=== PATIENT | male | born 1950 | race Caucasian/White ===

== ENCOUNTER 2017-10-29 12:54 | Emergency (ER) | payer OTHER ==
[2017-10-29 14:47] LABS: BASOPHILS 0.9 % (0-2); HEMATOCRIT 39.8 % (42.0-54.0); HEMOGLOBIN 13.6 g/dL (13.5-17.5); LYMPHOCYTES 34.9 % (15-50); MCH 31.8 pg (26.0-34.0); MCHC 34.2 g/dL (31.0-37.0); MEAN PLATELET VOLUME 8.5 fL (7.4-10.4); MONOCYTES 6.2 % (2-11); PLATELET COUNT 217 10x3/uL (130-400); RBC 4.28 10x6/uL (4.20-6.10); WBC 5.8 10x3/uL (4.8-10.8)
[2017-10-29 15:41] LABS: ALBUMIN 3.3 g/dL (3.4-5.0); ALKALINE PHOSPHATASE 48 U/L (46-116); ALT (SGPT) 23 U/L (10-68); CALC OSMOLALITY 282 mosm/kg (275-300); CALCIUM 8.6 mg/dL (8.5-10.1); CARBON DIOXIDE 25.1 mmol/L (21.0-32.0); CHLORIDE - SERUM 107 mmol/L (98-107); CREATININE - SERUM 0.9 mg/dL (0.6-1.3); GLUCOSE 92 mg/dL (74-106); POTASSIUM - SERUM 3.9 mmol/L (3.5-5.1); PROTEIN - SERUM 6.9 g/dL (6.4-8.2); SODIUM 142 mmol/L (136-145); UREA NITROGEN 13 mg/dL (7-18); eGFR NON AFRICAN AMERICAN 90 mL/min (90-120)
[2017-10-29 15:45] LABS: CREATINE KINASE 53 UL (21-232); TROPONIN-I < 0.017 ng/mL (0.000-0.060)
== END 2017-10-29 16:21 | disposition home or self-care (01) ==
LOC: D.ER 12:54
PROVIDERS: Emergency Medicine
DX: R20.2 Paresthesia of skin (principal); I50.9 Heart failure, unspecified; I10 Essential (primary) hypertension; I44.4 Left anterior fascicular block

== ENCOUNTER 2019-11-01 21:51 | Emergency (ER) | payer OTHER ==
[~2019-11-01] VITALS: Ht 175.3 cm; Wt 111.4 kg
[2019-11-01 22:19] VITALS: Ht 175.3 cm; Wt 111.4 kg
[2019-11-01] MEDS ORDERED: METOPROLOL TART25 MG PO (22:21)
[2019-11-01] MEDS ORDERED: ELIQUIS5 MG PO (22:21)
[2019-11-01] MEDS ORDERED: MONODOX100 MG PO (22:22)
[2019-11-01] MEDS ORDERED: LISINOPRIL5 MG PO (22:22)
[2019-11-01] MEDS ORDERED: CARDURA4 MG PO (22:22)
[2019-11-01] MEDS ORDERED: PRAVACHOL40 MG PO (22:22)
[2019-11-01] MEDS ORDERED: CLINDAMYCIN HC150 MG PO (22:40)
[2019-11-01 23:09] VITALS: BP 130/71
== END 2019-11-01 23:09 | disposition home or self-care (01) ==
LOC: D.ER 21:51
DX: L03.031 Cellulitis of right toe (principal); Z86.73 Personal history of transient ischemic attack (TIA), and cerebral infarction without residual deficits; I10 Essential (primary) hypertension; E78.5 Hyperlipidemia, unspecified; Z72.0 Tobacco use